=== PATIENT | male | born 1985 | race Two or more races ===

== ENCOUNTER 2018-08-11 09:27 | Emergency (ER) | payer OTHER ==
[~2018-08-11] VITALS: Ht 170.2 cm; Wt 68.9 kg
== END 2018-08-11 12:31 | disposition home or self-care (01) ==
LOC: ER 09:27
DX: S62.334A Displaced fracture of neck of fourth metacarpal bone, right hand, initial encounter for closed fracture (principal); W22.8XXA Striking against or struck by other objects, initial encounter; Y93.89 Activity, other specified; Y92.89 Other specified places as the place of occurrence of the external cause; Y99.8 Other external cause status

== ENCOUNTER 2018-08-14 09:10 | Outpatient (CLI) | payer OTHER | END 2018-08-14 09:20 | disposition home or self-care (01) | LOC: RAD 501 09:10 | DX: S62.364A Nondisplaced fracture of neck of fourth metacarpal bone, right hand, initial encounter for closed fracture (principal) ==